=== PATIENT | male | born 1970 | race Caucasian/White ===

== ENCOUNTER → 2019-05-01 | Outpatient (CLI) | payer OTHER ==
[2019-05-01 13:56] LABS: BASO # 0.1 10*3/uL (0.0-0.1); BASO % 0.8 % (0.0-1.0); EOS # 0.3 10*3/uL (0.0-0.4); EOS % 3.2 % (1.0-4.0); HEMATOCRIT 43.4 % (42.0-52.0); LYMPH # 3.7 10*3/uL (1.3-4.4); LYMPH % 37.4 % (27.0-41.0); MEAN CELL VOLUME 86.8 fl (80.0-94.0); MEAN CORPUSCULAR HGB CONC 32.3 g/dl (33.0-37.0); MEAN PLATELET VOLUME 9.3 fl (9.6-12.3); MONO # 0.7 10*3/uL (0.1-1.0); MONO % 6.7 % (3.0-9.0); NEUT # 5.2 10*3/uL (2.3-7.9); NEUT % 51.6 % (47.0-73.0); PLATELET COUNT AUTOMATED 303 10*3/uL (130-400); RED CELL DISTRI WIDTH 14.1 % (0-14.5)
== END | disposition home or self-care (01) ==
LOC: LAB 13:14
PROVIDERS: Orthopaedic Surgery
DX: M47.816 Spondylosis without myelopathy or radiculopathy, lumbar region (principal); M43.16 Spondylolisthesis, lumbar region; M41.86 Other forms of scoliosis, lumbar region; M25.551 Pain in right hip; M79.651 Pain in right thigh

== ENCOUNTER → 2020-07-21 | Outpatient (CLI) | payer OTHER ==
[2020-07-21 14:45] LABS: BASO # 0.1 10*3/uL (0.0-0.1); BASO % 0.8 % (0.0-1.0); EOS # 0.2 10*3/uL (0.0-0.4); EOS % 2.2 % (1.0-4.0); LYMPH # 3.3 10*3/uL (1.3-4.4); LYMPH % 33.1 % (27.0-41.0); MEAN CELL VOLUME 83.5 fl (80.0-94.0); MEAN CORPUSCULAR HGB 27.1 pg (27.0-31.0); MEAN CORPUSCULAR HGB CONC 32.5 g/dl (33.0-37.0); MEAN PLATELET VOLUME 8.8 fl (9.6-12.3); MONO # 0.7 10*3/uL (0.1-1.0); MONO % 7.3 % (3.0-9.0); NEUT # 5.6 10*3/uL (2.3-7.9); NEUT % 56.4 % (47.0-73.0); PLATELET COUNT AUTOMATED 290 10*3/uL (130-400); RED BLOOD COUNT 5.27 10*6/uL (4.50-5.90); RED CELL DISTRI WIDTH 14.2 % (0-14.5)
[2020-07-21 15:29] LABS: CHLORIDE 104 mmol/L (98-107); POTASSIUM 3.7 mmol/L (3.5-5.1); SODIUM 137 mmol/L (136-145)
[2020-07-21 15:46] LABS: ALKALINE PHOSPHATASE 84 U/L (45-117); BILIRUBIN, DIRECT 0.1 mg/dL (0.0-0.2); BUN 14 mg/dl (7-24); CHOLESTEROL 172 mg/dL (<200); CREATININE 0.98 mg/dL (0.70-1.30); FREE T4 0.87 ng/dl (0.76-1.46); HDL CHOLESTEROL 48 mg/dl (40-60); IRON 92 ug/dL (65-175); LDL CHOLESTEROL 94 mg/dL (9-159); SGOT/AST 14 IU/L (3-35); SGPT/ALT 34 U/L (12-78); TOTAL PROTEIN 7.9 gm/dL (6.4-8.2); TRIGLYCERIDES 149 mg/dl (<150); VLDL CHOLESTEROL 30 mg/dL (6-40)
== END | disposition home or self-care (01) ==
LOC: LAB 14:28
PROVIDERS: ATTEND Family Medicine
DX: E11.9 Type 2 diabetes mellitus without complications (principal); D64.9 Anemia, unspecified; E78.49 Other hyperlipidemia